=== PATIENT | female | born 1990 | race Two or more races ===

== ENCOUNTER 2019-10-02 19:55 | Emergency (ER) | payer MEDICAID, OTHER ==
[~2019-10-02] VITALS: Ht 160 cm; Wt 65.8 kg
[2019-10-02 20:05] VITALS: BP 109/68
--- NOTE | 2019-10-02 20:05 | NUR ---
ED Nurse Note: Pt aaox4, vss, no acute distress. Pt cooperative an well groomed. 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 No skin issues noted and pt denies fall. Pt walked in c/o pain on her LT chest since 2 weeks. Pt stated 6/10 pain is sharp and "cramp like feeling". Pt stated the pain is more constant than before. Pt stated she was at rest when pain occured and has not gone away. Pain is nonradiating
--- NOTE | 2019-10-02 20:27 | Emergency Room Report ---
History of Present Illness General Chief Complaint: Chest Pain Source: Patient Present Illness HPI Patient presents with 3 days of worsened left-sided chest pain. It began approximately 2 weeks ago. She feels it sharp intermittent. Somewhat worsened by exertion and change of position. Not worsened by laying down. She denies feeling heartburn or acid reflux. She has not taken any medication for this. She drinks alcohol approximately once a month. This is not related to the onset of this problem. She has not been working out more with her upper extremities. She is not on control. She does not smoke. There is no family history of blood clots. The pain is rated 6/10 when it occurs at its worst. It radiates somewhat up towards her shoulder. Cardiac risk factors: None Patient being evaluated for endometriosis. Was advised to take ibuprofen but has not been taking it. Last the third of this month. Her menstruation has been somewhat irregular which stimulated the work-up. She is been having suprapubic discomfort. 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 Last Menstrual Period: 09/23 Now: No Reviewed Nursing Documentation: PMH: Agreed; PSxH: Agreed Nursing Documentation-PMH Past Medical History: No Stated History Review of Systems All Other Systems: negative except mentioned in HPI Physical Exam Vital Signs Date Time Temp Pulse Resp B/P (MAP) Pulse Ox O2 Delivery O2 Flow Rate FiO2 10/02/19 19:56 97.7 87 16 117/74 (88) 97 Room Air Sp02 EP Interpretation: reviewed, normal General Appearance: well appearing, no apparent distress, GCS 15 Head: normocephalic Eyes: bilateral eye normal inspection, bilateral eye PERRL, bilateral eye EOMI ENT: moist mucus membranes Neck: supple Respiratory: lungs clear, normal breath sounds, other - Some chest wall tenderness with palpation Cardiovascular #1: regular rate, rhythm, no edema Cardiovascular #2: 2+ radial (R) Gastrointestinal: normal inspection, normal bowel sounds, non tender, no mass, non-distended Musculoskeletal: back normal, normal range of motion, no calf tenderness, gait/ station normal Neurologic: alert, oriented x3 Psychiatric: mood/affect normal Skin: no rash, warm/dry, other - Rare tattoos Medical Decision Making Diagnostic Impression: Primary Impression: Chest wall pain Additional Impression: Suprapubic pain ER Course Patient presents with left-sided chest pain. Differential includes carditis, muscle spasms, costochondritis, reflux esophagitis amongst others. Cardiac risk factors are nil. Clinically she does not have a pulmonary embolus. Evaluation with EKG, chest x-ray and labs. She believes she is not at this time. Toradol has been ordered. EKG sinus rhythm rate 73 normal EKG. Chest x-ray clear. Labs unremarkable. Patient had an increase in suprapubic discomfort. Toradol repeated. Tylenol also given. Patient improved. Discussed findings with patient. Also discussed the need for outpatient follow- up. No medical emergency at this time. Patient stable for outpatient observation and treatment. Laboratory Tests Test 10/02/19 20:26 White Blood Count 5.8 K/UL (4.8-10.8) Red Blood Count 4.77 M/UL (4.20-5.40) Hemoglobin 13.9 G/DL (12.0-16.0) Hematocrit 39.3 % (37.0-47.0) Mean Corpuscular Volume 82 FL (80-99) Mean Corpuscular Hemoglobin 29.1 PG (27.0-31.0) Mean Corpuscular Hemoglobin Concent 35.3 G/DL (32.0-36.0) Red Cell Distribution Width 10.5 % (11.6-14.8) L Platelet Count 330 K/UL (150-450) Mean Platelet Volume 6.1 FL (6.5-10.1) L Neutrophils (%) (Auto) 57.6 % (45.0-75.0) Lymphocytes (%) (Auto) 32.9 % (20.0-45.0) Monocytes (%) (Auto) 8.0 % (1.0-10.0) Eosinophils (%) (Auto) 0.4 % (0.0-3.0) Basophils (%) (Auto) 1.1 % (0.0-2.0) Urine Color Yellow Urine Appearance Slightly cloudy Urine pH 8 (4.5-8.0) Urine Specific [place] 1.010 (1.005-1.035) Urine Protein Negative (NEGATIVE) Urine Glucose (UA) Negative (NEGATIVE) Urine Ketones Negative (NEGATIVE) Urine Blood Negative (NEGATIVE) Urine Nitrite Negative (NEGATIVE) Urine Bilirubin Negative (NEGATIVE) Urine Urobilinogen Normal MG/DL (0.0-1.0) Urine Leukocyte Esterase 1+ (NEGATIVE) H Urine RBC 0-2 /HPF (0 - 2) Urine WBC 0-2 /HPF (0 - 2) Urine Squamous Epithelial Cells Many /LPF (NONE/OCC) H Urine Amorphous Sediment Few /LPF (NONE) H Urine Bacteria Moderate /HPF (NONE) H Urine HCG, Qualitative Negative (NEGATIVE) Sodium Level 141 MMOL/L (136-145) Potassium Level 3.7 MMOL/L (3.5-5.1) Chloride Level 105 MMOL/L (98-107) Carbon Dioxide Level 28 MMOL/L (21-32) Anion Gap 9 mmol/L (5-15) Blood Urea Nitrogen 16 mg/dL (7-18) Creatinine 0.7 MG/DL (0.55-1.30) Estimate Glomerular Filtration Rate > 60 mL/min (>60) Glucose Level 91 MG/DL (74-106) Calcium Level 9.3 MG/DL (8.5-10.1) Total Bilirubin 0.2 MG/DL (0.2-1.0) Aspartate Amino Transferase (AST) 23 U/L (15-37) Alanine Aminotransferase (ALT) 37 U/L (12-78) Alkaline Phosphatase 53 U/L (46-116) Total Creatine Kinase 94 U/L (26-308) Troponin I 0.000 ng/mL (0.000-0.056) Total Protein 7.3 G/DL (6.4-8.2) Albumin 4.2 G/DL (3.4-5.0) Globulin 3.1 g/dL Albumin/Globulin Ratio 1.4 (1.0-2.7) EKG Diagnostic Results Rate: normal Rhythm: NSR ST Segments: no acute changes Rhythm Strip Diag. Results EP Interpretation: yes Rhythm: NSR, no PVC's, no ectopy Chest X-Ray Diagnostic Results Chest X-Ray Diagnostic Results : Chest X-Ray Ordered: Yes # of Views/Limited/Complete: 1 View Indication: Chest Pain EP Interpretation: Yes Interpretation: no consolidation, no effusion, no pneumothorax Impression: No acute disease Electronically Signed by: Electronically signed by Ancelmo Amor MD Last Vital Signs Date Time Temp Pulse Resp B/P (MAP) Pulse Ox O2 Delivery O2 Flow Rate FiO2 10/02/19 22:05 98.2 69 16 118/75 100 Room Air Status: improved Disposition: HOME, SELF-CARE Condition: Improved Scripts Hydrocodone Bit/Acetaminophen 5-325* (NORCO 5-325*) 1 Each Tablet 1 TAB ORAL Q6H PRN for For Pain, #8 TAB 0 Refills Prov: Ancelmo Amor MD 10/02/19 Ibuprofen* (MOTRIN*) 600 Mg Tablet 600 MG ORAL Q6H PRN for For Pain, #16 TAB 0 Refills Prov: Ancelmo Amor MD 10/02/19 Ancelmo Amor MD Oct 02, 2019 20:26
[2019-10-02] MEDS ORDERED: Ketorolac 30mg Inj IV ONE ×2 (20:30→21:15)
--- NOTE | 2019-10-02 20:32 | NUR ---
ED Nurse Note: Blood and urine sent to lab.
[2019-10-02 20:46] LABS: APPEARANCE,URINE SLIGHTLY CLOUDY; BILIRUBIN, URINE NEGATIVE (NEGATIVE); GLUCOSE, URINE (UA) NEGATIVE (NEGATIVE); KETONES,URINE NEGATIVE (NEGATIVE); LEUKOCYTE ESTERASE ,URINE 1+ (NEGATIVE); NITRITE,URINE NEGATIVE (NEGATIVE); PH,URINE 8 (4.5-8.0); PROTEIN,URINE NEGATIVE (NEGATIVE); UROBILINOGEN,URINE NORMAL MG/DL (0.0-1.0)
[2019-10-02 20:47] LABS: COLOR,URINE YELLOW
[2019-10-02 20:48] LABS: BASOPHILS % (AUTO) 1.1 % (0.0-2.0); EOSINOPHILS % (AUTO) 0.4 % (0.0-3.0); HEMATOCRIT 39.3 % (37.0-47.0); HEMOGLOBIN 13.9 G/DL (12.0-16.0); LYMPHOCYTES % (AUTO) 32.9 % (20.0-45.0); MEAN CORPUSCULAR VOLUME 82 FL (80-99); NEUTROPHILS % (AUTO) 57.6 % (45.0-75.0); PLATELET COUNT 330 K/UL (150-450); RED BLOOD COUNT 4.77 M/UL (4.20-5.40); RED CELL DISTRIBUTION WIDTH 10.5 % (11.6-14.8); WHITE BLOOD COUNT 5.8 K/UL (4.8-10.8)
[2019-10-02 20:56] LABS: ANION GAP 9 mmol/L (5-15); BLOOD UREA NITROGEN 16 mg/dL (7-18); CALCIUM 9.3 MG/DL (8.5-10.1); CARBON DIOXIDE 28 MMOL/L (21-32); CHLORIDE 105 MMOL/L (98-107); CREATININE 0.7 MG/DL (0.55-1.30); POTASSIUM 3.7 MMOL/L (3.5-5.1); SODIUM 141 MMOL/L (136-145)
--- NOTE | 2019-10-02 20:57 | Diagnostic Imaging Report ---
EXAM: XR Chest, 1 View CLINICAL HISTORY: CP TECHNIQUE: Frontal view of the chest. COMPARISON: No relevant prior studies available. FINDINGS: Lungs: Unremarkable. No consolidation. Pleural space: Unremarkable. No pneumothorax. Heart: Unremarkable. No cardiomegaly. Mediastinum: Unremarkable. Bones/joints: Unremarkable. IMPRESSION: Normal chest.
[2019-10-02 21:01] LABS: ALANINE AMINOTRANSFERASE 37 U/L (12-78); ALBUMIN 4.2 G/DL (3.4-5.0); ALBUMIN/GLOBULIN RATIO 1.4 (1.0-2.7); ALKALINE PHOSPHATASE 53 U/L (46-116); ASPARTATE AMINO TRANSFERASE 23 U/L (15-37); BILIRUBIN,TOTAL 0.2 MG/DL (0.2-1.0); CREATINE KINASE 94 U/L (26-308)
[2019-10-02] MEDS ORDERED: Acetaminophen 500mg (ES) tab ORAL ONE (21:30)
--- NOTE | 2019-10-02 21:35 | NUR ---
Magno johansen in EDM - 10/02/19 at 2149 by [email or web address] ED Nurse Note: at bedside.
[2019-10-02 21:38] VITALS: BP 114/71
--- NOTE | 2019-10-02 21:40 | NUR ---
ED Nurse Note: Pt is resting and states pain is 3/10
--- NOTE | 2019-10-02 21:41 | NUR ---
ED Nurse Note: MD at bedside.
[2019-10-02] MEDS ORDERED: NORCO 5-325 TA1 EACH ORAL (21:52)
[2019-10-02] MEDS ORDERED: IBUPROFEN600 MG ORAL (21:52)
[2019-10-02 22:00] VITALS: BP 116/72
[2019-10-02 22:05] VITALS: BP 118/75
--- NOTE | 2019-10-02 22:05 | NUR ---
ER DISCHARGE NOTE: Patient is cleared to be discharged per ERMD, pt is aox4, on room air, with stable vital signs. pt was given dc and prescription instructions, pt was able to verbalize understanding, pt id band and iv site removed without complications. pt is able to ambulate with steady gait. pt took all belongings. Pt states pain is 2/10.
== END 2019-10-02 22:05 | disposition home or self-care (01) ==
LOC: EMR 21:08
DX: R07.9 Chest pain, unspecified (principal); R10.2 Pelvic and perineal pain
CPT/HCPCS: 36415; 71045; 80053; 81003; 81025; 82550; 84484; 85025; 87086; 93005; 96374; 96376; J1885; Z7502; 99284

== ENCOUNTER 2020-02-29 21:01 | Emergency (ER) | payer OTHER ==
[~2020-02-29] VITALS: Ht 160 cm; Wt 65.8 kg
[~2020-02-29 21:01] MED LIST: IBUPROFEN600 MG ORAL; NORCO 5-325 TA1 EACH ORAL
--- NOTE | 2020-02-29 21:31 | NUR ---
ED Nurse Note: pt presents to ED c/o dizziness and lethargy x 2 weeks. pt reports that she went to see her PCP 1 week ago who told her to drink pedialyte which she has been doing without improvement of symptoms. pt describes "feeling like passing out" without LOC. pt also reports nausea without vomiting.
[2020-02-29 21:33] VITALS: BP 136/78
--- NOTE | 2020-02-29 21:40 | NUR ---
ED Nurse Note: 20g IV established in LAC, blood and urine specimens sent to lab
--- NOTE | 2020-02-29 21:49 | Emergency Room Report ---
History of Present Illness General Chief Complaint: Dizziness Source: Patient Present Illness HPI 29-year-old female no past medical history no surgical history presents with feelings of lightheadedness presyncopal-like symptoms, accompanied with low blood pressure x4 days no aggravating relieving factors severity is mild, intermittent patient been seen by her PCP negative work-up patient presents for evaluation and treatment she denies any chest pain she does endorse some shortness of breath no cough no congestion no fevers no chills no abdominal pain no dysuria Allergies: Coded Allergies: No Known Allergies (Unverified , 10/02/19) COVID-19 Screening Contact w/high risk pt: No Recent Travel to affected area: No Experienced COVID-19 symptoms?: No Patient History Past Medical History: see triage record Last Menstrual Period: 02/18/20 Now: No : 3 Para: 2 Reviewed Nursing Documentation: PMH: Agreed; PSxH: Agreed Nursing Documentation-PMH Past Medical History: No History, Except For Review of Systems All Other Systems: negative except mentioned in HPI Physical Exam Vital Signs Date Time Temp Pulse Resp B/P (MAP) Pulse Ox O2 Delivery O2 Flow Rate FiO2 02/29/20 21:12 98.6 69 20 136/78 (97) 99 Room Air Sp02 EP Interpretation: reviewed, normal General Appearance: well appearing, no apparent distress, alert Head: normocephalic, atraumatic Eyes: bilateral eye PERRL, bilateral eye EOMI ENT: uvula midline, moist mucus membranes Neck: supple, thyroid normal, supple/symm/no masses Respiratory: lungs clear, no respiratory distress, no retraction, no accessory muscle use Cardiovascular #1: normal peripheral pulses, regular rate, rhythm, no edema, no gallop, no murmur Gastrointestinal: non tender, soft, no guarding, no rebound Musculoskeletal: normal inspection Neurologic: alert, oriented x3 Psychiatric: mood/affect normal Skin: no rash, warm/dry Medical Decision Making Diagnostic Impression: Primary Impression: Pre-syncope ER Course 29-year-old female presents with presyncopal-like symptoms, EKG negative chest x -ray negative, PE RC negative Patient shows no evidence of anemia, labs negative Counseled patient to drink plenty of fluids disposition home with return precautions follow-up with PCP for further work-up Laboratory Tests Test 02/29/20 21:40 White Blood Count 7.3 K/UL (4.8-10.8) Red Blood Count 4.64 M/UL (4.20-5.40) Hemoglobin 13.3 G/DL (12.0-16.0) Hematocrit 41.5 % (37.0-47.0) Mean Corpuscular Volume 89 FL (80-99) Mean Corpuscular Hemoglobin 28.6 PG (27.0-31.0) Mean Corpuscular Hemoglobin Concent 32.0 G/DL (32.0-36.0) Red Cell Distribution Width 14.1 % (11.6-14.8) Platelet Count 336 K/UL (150-450) Mean Platelet Volume 8.1 FL (6.5-10.1) Neutrophils (%) (Auto) 68.6 % (45.0-75.0) Lymphocytes (%) (Auto) 23.8 % (20.0-45.0) Monocytes (%) (Auto) 6.1 % (1.0-10.0) Eosinophils (%) (Auto) 0.3 % (0.0-3.0) Basophils (%) (Auto) 1.1 % (0.0-2.0) Prothrombin Time 10.0 SEC (9.30-11.50) Prothrombin Time INR 0.9 (0.9-1.1) Activated Partial Thromboplast Time 27 SEC (23-33) Urine HCG, Qualitative Negative (NEGATIVE) Sodium Level 140 MMOL/L (136-145) Potassium Level 3.8 MMOL/L (3.5-5.1) Chloride Level 105 MMOL/L (98-107) Carbon Dioxide Level 26 MMOL/L (21-32) Anion Gap 9 mmol/L (5-15) Blood Urea Nitrogen 13 mg/dL (7-18) Creatinine 0.7 MG/DL (0.55-1.30) Estimated Glomerular Filtration Rate > 60 mL/min (>60) Glucose Level 90 MG/DL (74-106) Calcium Level 8.9 MG/DL (8.5-10.1) Total Bilirubin 0.2 MG/DL (0.2-1.0) Aspartate Amino Transferase (AST) 18 U/L (15-37) Alanine Aminotransferase (ALT) 25 U/L (12-78) Alkaline Phosphatase 53 U/L (46-116) Troponin I 0.000 ng/mL (0.000-0.056) Total Protein 7.5 G/DL (6.4-8.2) Albumin 4.2 G/DL (3.4-5.0) Globulin 3.3 g/dL Albumin/Globulin Ratio 1.3 (1.0-2.7) EKG Diagnostic Results EKG Time: 21:23 EP Interpretation: NSR, rate 68, QTc 397, no acute ST elevations, normal axis Rhythm Strip Diag. Results Rhythm Strip Time: 21:49 EP Interpretation: yes Rate: 66 Rhythm: NSR, no PVC's, no ectopy Chest X-Ray Diagnostic Results Chest X-Ray Diagnostic Results : Chest X-Ray Ordered: Yes # of Views/Limited/Complete: 1 View Indication: Shortness of Breath EP Interpretation: Yes Interpretation: no consolidation, no effusion, no pneumothorax, no acute cardiopulmonary disease Impression: No acute disease Electronically Signed by: Josesito Leija MD Last Vital Signs Date Time Temp Pulse Resp B/P (MAP) Pulse Ox O2 Delivery O2 Flow Rate FiO2 02/29/20 21:33 69 20 Room Air 02/29/20 21:33 98.6 136/78 99 Disposition: HOME, SELF-CARE Condition: Stable Referrals: [facility]ERR[facility] (PCP) [facility] Sharla Rogers [facility] Patient Instructions: Syncope Additional Instructions: The patient was provided with discharge instructions, notified to follow-up with a primary care doctor and or specialist in the next 24-48 hours, and to return to the ED if they have worsening of their symptoms. Please note that this report is being documented using [employer] technology. This can lead to erroneous entry secondary to incorrect interpretation by the dictating instrument. Josesito Leija MD February 29, 2020 21:49
[2020-02-29 22:05] LABS: BASOPHILS % (AUTO) 1.1 % (0.0-2.0); EOSINOPHILS % (AUTO) 0.3 % (0.0-3.0); HEMATOCRIT 41.5 % (37.0-47.0); HEMOGLOBIN 13.3 G/DL (12.0-16.0); LYMPHOCYTES % (AUTO) 23.8 % (20.0-45.0); MEAN CORPUSCULAR VOLUME 89 FL (80-99); MONOCYTES % (AUTO) 6.1 % (1.0-10.0); NEUTROPHILS % (AUTO) 68.6 % (45.0-75.0); PLATELET COUNT 336 K/UL (150-450); RED BLOOD COUNT 4.64 M/UL (4.20-5.40); RED CELL DISTRIBUTION WIDTH 14.1 % (11.6-14.8); WHITE BLOOD COUNT 7.3 K/UL (4.8-10.8)
[2020-02-29 22:10] LABS: INR 0.9 (0.9-1.1)
[2020-02-29 22:12] LABS: ANION GAP 9 mmol/L (5-15); BLOOD UREA NITROGEN 13 mg/dL (7-18); CALCIUM 8.9 MG/DL (8.5-10.1); CARBON DIOXIDE 26 MMOL/L (21-32); CHLORIDE 105 MMOL/L (98-107); CREATININE 0.7 MG/DL (0.55-1.30); POTASSIUM 3.8 MMOL/L (3.5-5.1); SODIUM 140 MMOL/L (136-145)
[2020-02-29 22:16] LABS: ALANINE AMINOTRANSFERASE 25 U/L (12-78); ALBUMIN 4.2 G/DL (3.4-5.0); ALBUMIN/GLOBULIN RATIO 1.3 (1.0-2.7); ALKALINE PHOSPHATASE 53 U/L (46-116); ASPARTATE AMINO TRANSFERASE 18 U/L (15-37); BILIRUBIN,TOTAL 0.2 MG/DL (0.2-1.0)
[2020-02-29 22:36] VITALS: BP 136/78
--- NOTE | 2020-02-29 22:36 | NUR ---
ER DISCHARGE NOTE: Patient is cleared to be discharged per ERMD, pt is aox4, on room air, with stable vital signs. pt was given dc and prescription instructions, pt was able to verbalize understanding, pt id band and iv site removed without complications. pt is able to ambulate with steady gait. pt took all belongings.
== END 2020-02-29 22:36 | disposition home or self-care (01) ==
LOC: EMR 21:38
DX: R55 Syncope and collapse (principal)
CPT/HCPCS: 36415; 71045; 80053; 81025; 84484; 85025; 85610; 85730; 93005; Z7502; 99283

== ENCOUNTER 2020-05-04 13:50 | Emergency (ER) | payer OTHER ==
[~2020-05-04] VITALS: Ht 160 cm; Wt 63.5 kg
--- NOTE | 2020-05-04 13:49 | NUR ---
ED Nurse Note: PT walked in to ED for C/O SOB, dry cough and fever x 1 week. 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 sp02 in room air is 95%
[2020-05-04 13:50] VITALS: BP 116/80
--- NOTE | 2020-05-04 14:10 | NUR ---
ED Nurse Note: x ray being taken at teny
--- NOTE | 2020-05-04 14:31 | Emergency Room Report ---
History of Present Illness General Chief Complaint: Dyspnea/Respdistress Source: Patient Present Illness HPI 29-year-old female with no signal past medical history here complaining of 1 week of shortness of breath and minor cough with few bouts of nonbloody diarrhea. Also complains of loss of taste and smell. Reports that she works with: Positive patient is in a alf. Patient has oxygenation of 95%, afebrile, otherwise within normal limits. Denies chest pain at this time. Patient is in no respiratory distress. Denies abdominal pain nausea vomiting. Has not taken medication for symptom relief. Denies . Allergies: Coded Allergies: No Known Allergies (Unverified , 10/02/19) COVID-19 Screening Contact w/high risk pt: Yes Recent Travel to affected area: No Experienced COVID-19 symptoms?: Yes COVID-19 Testing performed [employer]: No Patient History Past Medical History: see triage record Past Surgical History: none Pertinent Family History: none Last Menstrual Period: na Now: No Reviewed Nursing Documentation: PMH: Agreed; PSxH: Agreed Nursing Documentation-PMH Past Medical History: No Stated History Review of Systems All Other Systems: negative except mentioned in HPI Physical Exam Vital Signs Date Time Temp Pulse Resp B/P (MAP) Pulse Ox O2 Delivery O2 Flow Rate FiO2 05/04/20 13:45 99.0 105 19 116/80 (92) 95 Room Air Sp02 EP Interpretation: reviewed, abnormal - O2 sat 95% General Appearance: no apparent distress, alert, GCS 15, non-toxic Head: normocephalic, atraumatic Eyes: bilateral eye normal inspection, bilateral eye PERRL ENT: hearing grossly normal, normal pharynx, no angioedema, normal voice Neck: full range of motion, supple/symm/no masses Respiratory: chest non-tender, lungs clear, normal breath sounds, no rhonchi, no respiratory distress, no retraction, no wheezing, speaking full sentences Cardiovascular #1: regular rate, rhythm, no edema, no murmur Gastrointestinal: normal bowel sounds, non tender, soft, non-distended, no guarding, no rebound Rectal: deferred Genitourinary: no CVA tenderness Musculoskeletal: back normal Neurologic: alert, motor strength/tone normal, oriented x3, sensory intact, responsive, speech normal Psychiatric: judgement/insight normal, memory normal, mood/affect normal, no suicidal/homicidal ideation Skin: no rash Lymphatic: no adenopathy Medical Decision Making PA Attestation All diagnoses and treatment plans were reviewed and discussed with my supervising physician Dr. Velasquez Diagnostic Impression: Primary Impression: Suspected COVID-19 virus infection Additional Impression: Upper respiratory infection ER Course 29-year-old female with no signal past medical history here complaining of 1 week of shortness of breath and minor cough with few bouts of nonbloody diarrhea. Also complains of loss of taste and smell. Reports that she works with: Positive patient is in a alf. Patient has oxygenation of 95%, afebrile, otherwise within normal limits. Denies chest pain at this time. Patient is in no respiratory distress. Denies abdominal pain nausea vomiting. Has not taken medication for symptom relief. Denies . Ddx considered but are not limited to: bronchitis, PNA, URI viral, bacterial bronchitis, coronavirus Vital signs: are WNL, pt. is afebrile H&PE are most consistent with: Suspected COVID-19, URI ORDERS: Chest x-ray, azithromycin, prednisone, Tylenol ED INTERVENTIONS: None required at this time. DISCHARGE: At this time pt. is stable for d/c to home. Will provide printed patient care instructions, and any necessary prescriptions. Care plan and follow up instructions have been discussed with the patient prior to discharge. Patient to stay overnight for 10 days, also Glucola testing across the street to [place]. [address]. Take medication as directed, worsening symptoms return to the emergency room. Patient is stable at this time does not meet the criteria to be admitted to the hospital and further evaluation for Covid Chest X-Ray Diagnostic Results Chest X-Ray Diagnostic Results : Chest X-Ray Ordered: Yes # of Views/Limited/Complete: 1 View Indication: Shortness of Breath EP Interpretation: Yes CHENCHO Xray: Interpretation reviewed, by supervising MD, and agrees with findings. Interpretation: no consolidation, no effusion, no pneumothorax Impression: No acute disease Electronically Signed by: Edith Ferreira PA-C Last Vital Signs Date Time Temp Pulse Resp B/P (MAP) Pulse Ox O2 Delivery O2 Flow Rate FiO2 05/04/20 13:50 105 19 Room Air 05/04/20 13:50 99.0 116/80 95 Disposition: HOME, SELF-CARE Condition: Stable Scripts Acetaminophen* (TYLENOL EXTRA STRENGTH*) 500 Mg Tablet 500 MG ORAL Q6H PRN for Mild Pain/Temp > 100.5, #30 TAB 0 Refills Prov: Edith Ceron 05/04/20 Prednisone* (PREDNISONE*) 20 Mg Tablet 40 MG ORAL DAILY for 5 Days, #10 TAB Prov: Edith Ceron 05/04/20 Azithromycin* (ZITHROMAX*) 250 Mg Tablet 250 MG ORAL DAILY, #6 TAB 0 Refills Take two tables once daily for 1 day, then one tablet once daily for 4 days. Prov: Edith Ceron 05/04/20 Patient Instructions: Shortness of Breath, [id number], Upper Respiratory Infection, Adult, [id number] Additional Instructions: Take medication as directed, follow-up with your primary care provider, stay home for the next 14 days, worsening symptoms return to the emergency room Edith Ceron May 04, 2020 14:31
[2020-05-04] MEDS ORDERED: PREDNISONE20 MG ORAL (14:32)
[2020-05-04] MEDS ORDERED: ZITHROMAX250 MG ORAL (14:32)
[2020-05-04] MEDS ORDERED: TYLENOL EXTRA500 MG ORAL (14:32)
[2020-05-04 14:38] VITALS: BP 120/77
--- NOTE | 2020-05-04 14:38 | NUR ---
ER DISCHARGE NOTE: Patient is cleared to be discharged per ERMD, pt is aox4, on room air, with stable vital signs. pt was given dc and prescription instructions, pt was able to verbalize understanding, pt id band removed without complications. pt is able to ambulate with steady gait. pt took all belongings.
--- NOTE | 2020-05-04 15:32 | Diagnostic Imaging Report ---
Indication: Shortness of breath Technique: One view of the chest Comparison: 02/29/2020 Findings: Very questionable faint patchy infiltrate is seen at the right lung base, not evident previously. The remainder of the lungs an pleural spaces are clear. The heart size is normal. Impression: Questionable faint patchy right basilar infiltrate, could represent pneumonia if real. Correlate with clinical findings
== END 2020-05-04 15:10 | disposition home or self-care (01) ==
LOC: EDBD 13:50 → EMR 15:01
DX: J06.9 Acute upper respiratory infection, unspecified (principal); R06.02 Shortness of breath; R05 Cough
CPT/HCPCS: 71045; Z7502; 99283